=== PATIENT | female | born 1980 | race Caucasian/White ===

== ENCOUNTER 2019-09-20 09:44 | Emergency (ER) | payer MEDICAID, SELFPAY ==
[2019-09-20 09:45] VITALS: BP 144/74; PULSE 88; RESP 18; TEMP 36.6; O2SAT 99; BMI 24.7
--- NOTE | 2019-09-20 10:51 | ED.VIS.INJ ---
History of Present Illness Chief Complaint: Laceration Informant: Patient Onset: Today Quality of Pain: Dull Narrative: Patient is a 39-year-old female with no significant past medical history presenting with laceration below her right eye. Patient states she is reaching for mild and it fell over knocking off a metal side. Vital signs and struck her in the face. Patient stated. She came in because it on her face and she is worried she might need stitches. She does not know her last tetanus was but thinks it was a long time ago. He states her pain is mild. She denies any other complaints at this time. Tetanus Immunization: >10 years Past Medical History - Allergies and Home Meds Allergies/Adverse Reactions: Allergies Sulfa (Sulfonamide Antibiotics) Allergy (Verified 09/20/19 09:48) Rash sulfamethoxazole [From Bactrim] Allergy (Verified 09/20/19 09:48) Rash trimethoprim [From Bactrim] Allergy (Verified 09/20/19 09:48) Rash Primary Care Physician: Kulwant Betts MD [Primary Care Provider] - Past Medical History: None Surgical History: noncontributory Smoking Status: Current every day smoker Review of Systems General: Denies: Chills, Fever, Sweats Eyes: Denies: Visual changes - bilaterally, Diplopia ENT: Denies: Rhinorrhea, Sore throat Cardiovascular: Denies: Chest pain, Palpitations Respiratory: Denies: Dyspnea, Cough, Dyspnea on exertion Gastrointestinal: Denies: Nausea, Vomiting Genitourinary: Denies: Dysuria, Hematuria, Frequency Musculoskeletal: Denies: Back pain, Extremity Pain Skin: Reports: Abrasions - Right cheek. Denies: Rash, Wounds Neurological: Denies: Headache, Weakness, Numbness Physical Exam Vital Signs/Narrative: Vital Signs Temp Pulse Resp BP Pulse Ox 09/20/19 09:45 97.9 F 88 18 144/74 H 99 Inital Vital Signs reviewed: Yes General: Well nourished, Well developed Head: Normocephalic Eyes: Perrl, EOMI ENT: No trauma. Negative for: Nasal trauma, Nasal septal hematoma Neck: Nontender, Full ROM Cardiovascular: Regular rate, Regular rhythm Respiratory: No distress, Chest nontender Back: Nontender Skin: Normal color, No rash, - - Patient has superficial, fine linear, superficial abrasion in the central area there is a 3 mm flap. No active bleeding. it is over right cheek, underneith the right eye. No involvement of the eye itself or immediate surrounding tissue. Neurological: Alert, Oriented x3, Cranial nerves II-XII grossly intact, Normal Strength Psychological: Normal affect Diagnostic/Tx/Re-eval - Medical Decision Making Patient sustained a laceration. Majority of it is superficial. There is a small deeper area however it is a flap that is already showing signs of devitalization. Is not amenable to suturing. Localized wound care is performed. Tetanus is updated. Patient is counseled on wound care. He is counseled on scar prevention. She is instructed to follow-up with her primary care doctor. Patient is counseled on signs and symptoms requiring return to the emergency room. Patient verbalizes agreement and understand this plan. Patient discharged home in stable and improved condition. ED Disposition - Plan for ED Patient: Disposition: Home or Assisted Living Instructions: LACERATION, Small/superficial, Not sutured Referrals: Kulwant Betts MD [Primary Care Provider] - Additional Instructions: Keep the wound clean and moist with bacitracin ointment or Vaseline. Keep it covered and out of the sun. Your tetanus is updated today. Return to emergency room with any worsening symptoms or signs of infection. Otherwise follow-up with your primary care doctor.
[2019-09-20] MEDS: Diphth,Pertuss(Acell),Tet Vac 0.5 ML Vial IM (11:26)
== END 2019-09-20 11:37 | disposition home or self-care (01) ==
PROVIDERS: Emergency Provider Emergency Medicine; Family Provider Family Medicine; PCP Family Medicine
DX: S01.411A Laceration without foreign body of right cheek and temporomandibular area, initial encounter (principal); X58.XXXA Exposure to other specified factors, initial encounter; Y93.89 Activity, other specified; F17.200 Nicotine dependence, unspecified, uncomplicated
CPT/HCPCS: 90715; 99282

== ENCOUNTER 2019-11-11 15:39 | Inpatient (IN) | payer MEDICAID, SELFPAY ==
[2019-11-11 15:40] VITALS: BP 114/76; PULSE 108; RESP 16; TEMP 36.4; O2SAT 100; BMI 26.6
[2019-11-11 16:03] LABS: Absolute Lymphocyte Count 1.74 X10^3/uL (0.83-4.51); Absolute Neutrophil Count 17.6 X10^3/uL (2.0-7.7); Basophil# 0.07 X10^3/uL; Basophil% 0.3 % (0-1); Eosinophil# 0.13 X10^3/uL; Eosinophils% 0.6 % (0-5); Hematocrit 46.9 % (37-47); Hemoglobin 15.4 g/dL (12.0-15.0); Lymphocyte # 1.74 X10^3/ul (4.0); Lymphocyte % 8.3 % (19-41); Mean Corp Hgb Conc 32.8 g/dL (32-36); Mean Corpuscular Hgb 28.7 pg (27.0-32.0); Mean Corpuscular Volume 87.5 fL (81-99); Mean Platelet Vol. 9.4 fl (6.2-12.0); Monocyte# 1.23 X10^3/uL; Monocyte% 5.9 % (0-10); NRBC Flagged by Analyzer 0 % (0-5); Neutrophil # 17.58 X10^3/uL (2.7-7.7); Neutrophil % 84.4 % (47-70); Platelet Count 299 K/mm3 (150-450); RBC Distribution Width CV 13.2 % (11.6-14.6); RBC Distribution Width SD 42.2 fl (35.1-43.9); Red Blood Count 5.36 M/mm3 (4.2-5.4); White Blood Count 20.9 K/mm3 (4.4-11.0)
--- NOTE | 2019-11-11 16:09 | CT_ITS ---
STUDY: CT ABDOMEN AND PELVIS WITH CONTRAST REASON FOR EXAM: Female, 39 years old. Epigastric pain x 5 days, vomiting, elevated WBC RADIATION DOSAGE (If Supplied By Facility): CTDIvol = ( 11.30 ) mGy, DLP = ( 576.20 ) mGycm TECHNIQUE: Transaxial images were obtained from the dome of the diaphragm to the symphysis pubis without oral contrast. Oral and amp; IV Gastrografin and amp; 100mL Isovue-300 was administered. Sagittal and coronal images were reconstructed. Individualized dose optimization techniques were used for this CT. COMPARISON: None. FINDINGS: The visualized lung bases are unremarkable. The visualized portions of the heart are within normal limits. Normal liver. There is non-visualization of the gallbladder, which may be secondary to either contraction or a prior cholecystectomy. The common bile duct is moderately dilated up to 9 mm. Intrahepatic biliary ducts are mildly prominent. Normal spleen. Normal pancreas. Normal bilateral adrenal glands. Normal right kidney. Normal left kidney. Distended fluid-filled stomach. Mildly distended small intestine. Normal colon. There is non-visualization of the appendix. Normal abdominal aorta. Normal inferior vena cava. Normal retroperitoneum. Normal urinary bladder. Normal visualized uterus. Normal abdominal wall. Normal osseous structures. CT/Abdomen/Pelvis WITH Contrast IMPRESSION: Distended fluid-filled stomach and moderately distended loops of fluid-filled small bowel may represent ileus versus early obstruction as clinically indicate. No other acute process is identified. Electronically Signed: Celestino Buitrago, at 18:57 EST Tel , Service support ,
--- NOTE | 2019-11-11 16:09 | ED.VIS.GEN ---
History of Present Illness Chief Complaint: Abd Pain Narrative: Patient presents the emergency department with upper abdominal pain. Symptoms began Saturday night into Saturday morning. She reports that it starts just above her umbilicus and goes up towards her epigastrium. Described as burning and cramping. No radiation of the pain. She notes associated nausea. She did vomit until today. She states that on Saturday and Saturday she did not have any symptoms but then the symptoms returned. No urinary or bowel symptoms. She is a smoker. She takes no medications. She does not drink alcohol. She does states she drinks a lot of coffee. She has had prior cholecystectomy. Decreased appetite. Past Medical History - Allergies and Home Meds Allergies/Adverse Reactions: Allergies Sulfa (Sulfonamide Antibiotics) Allergy (Verified 11/11/19 15:42) Rash sulfamethoxazole [From Bactrim] Allergy (Verified 11/11/19 15:42) Rash trimethoprim [From Bactrim] Allergy (Verified 11/11/19 15:42) Rash Surgical History: noncontributory Smoking Status: Current every day smoker - Family History Maternal Family History: Reports: No pertinent history Paternal Family History: Reports: Diabetes, Hypertension Review of Systems General: Denies: Chills, Fever, Sweats Eyes: Denies: Visual changes - bilaterally, Diplopia ENT: Denies: Rhinorrhea, Sore throat Cardiovascular: Denies: Chest pain, Palpitations Respiratory: Denies: Dyspnea, Cough, Dyspnea on exertion Gastrointestinal: Reports: Abdominal pain, Nausea, Vomiting. Denies: Diarrhea, Constipation, Melena, Hematochezia Genitourinary: Denies: Dysuria, Hematuria, Frequency Musculoskeletal: Denies: Back pain, Extremity Pain Skin: Denies: Rash, Wounds Neurological: Denies: Headache, Weakness, Numbness Physical Exam Vital Signs/Narrative: Vital Signs Temp Pulse Resp BP Pulse Ox 11/11/19 15:40 97.6 F L 108 H 16 114/76 100 Inital Vital Signs reviewed: Yes General: Well nourished, Well developed, No Acute Distress Head: Normocephalic, Atraumatic Eyes: Perrl, EOMI ENT: Moist mucous membranes, No rhinorrhea Neck: Supple, Nontender Cardiovascular: Regular rate, Regular rhythm, No murmurs Respiratory: No distress, CTA bilaterally, Chest nontender, Retractions Abdomen: Soft, Nondistended, Normal bowel sounds, Tender - Mild tenderness to palpation periumbilical and epigastric region., Hypoactive bowel sounds Back: Nontender, Normal Inspection Extremities: Nontender, No edema Skin: Normal color, No rash Neurological: Alert, Oriented x3, Cranial nerves II-XII grossly intact, Normal Strength, Normal Sensation Psychological: Normal affect, Normal Mood Diagnostic/Tx/Re-eval - Medical Decision Making White count is elevated at 20.9. CMP and lipase were normal. Lactic acid was normal. Urinalysis was normal. Patient had a CT of the abdomen pelvis with oral and IV contrast performed. This demonstrated a fluid-filled and distended stomach and moderately distended small bowel. The abdomen has remained soft but tender. NG tube was placed. I spoke with general surgery on-call Dr. Pinedo as well as our hospitalist Dr. Jacome. Plan is admission. ED Disposition - Plan for ED Patient: Disposition: Acute Care Hospital [facility] Diagnosis: Small bowel ileus
[2019-11-11 16:16] LABS: Anion Gap 4 (5-15); BUN 15 mg/dL (7-18); BUN/Creat Ratio 16.1 RATIO (10-20); Calcium,Total 9.3 mg/dL (8.5-10.1); Chloride 104 mmol/L (98-107); Creatinine, Serum 0.93 mg/dL (0.55-1.02); EST Glomerular Filtration Rate 70 mL/min (>60); Est Glom Filt Rate - Afr Amer 85 mL/min (>60); Estimated Creatinine Clearance 65.85 ml/min; Glucose 94 mg/dL (74-106); Internal QC Validated? YES +Cl - CLEAR BKGD; Potassium 3.4 mmol/L (3.5-5.1); Pregnancy, Serum, hCG Quali. NEGATIVE Negative; Sodium Level 137 mmol/L (136-145)
[2019-11-11] MEDS: 0.9% Normal Saline 1,000 ML 999 ML IV (16:25)
[2019-11-11 16:47] LABS: AST(SGOT) 31 U/L (15-37); Alanine Aminotransfer ALT/SGPT 50 U/L (13-56); Albumin, Serum 4.4 g/dL (3.2-5.0); Alkaline Phosphatase 57 U/L (45-117); Bilirubin, Direct 0.11 mg/dL (0.00-0.30); Protein, Total 8.4 g/dL (6.4-8.2)
[2019-11-11 16:50] LABS: Lipase 77 U/L (73-393)
[2019-11-11 17:15] LABS: Bacteria 0 SEEN /hpf (None Seen); Mucous, Urine 0 SEEN /hpf (<or=2+); Red Blood Cells-Urine 0 SEEN /hpf (0-5); White Blood Cells 0 SEEN /hpf (0-5)
[2019-11-11 17:21] LABS: Color, Urine Yellow (Yellow); Glucose, Dipstick Normal (Normal); Ketone-Dipstick Negative (Negative); Leukocyte Esterase-Dipstick Negative /ul (Negative); Nitrite-Dipstick Negative (Negative); Occult Blood-Urine Negative /ul (Negative); Protein-Dipstick Negative (Negative); Urine Bilirubin Dipstick Negative (Negative); Urine Clarity Clear (Clear); Urine Urobilinogen Normal (Normal)
[2019-11-11 17:34] LABS: Squamous Epithelial Cells - UA 0-5 SEEN /hpf (5-10)
[2019-11-11 18:18] VITALS: BP 113/69; PULSE 87; RESP 17; TEMP 36.7; O2SAT 99
--- NOTE | 2019-11-11 19:50 | RAD_ITS ---
STUDY: X-RAY - ABDOMEN/PELVIS REASON FOR EXAM: Female, 39 years old. NG PLACEMENT. PT ARRIVES TO ED WITH 5 DAYS OF EPIGASTRIC ABD PAIN. TECHNIQUE: Single view of the left upper quadrant COMPARISON: None. FINDINGS: Normal visualized lung bases. Enteric tube enters the stomach with its tip to the right of midline likely at the distal stomach. Retained contrast is noted within the renal collecting systems. There is an unremarkable bowel gas pattern. There is no demonstrated free abdominal air. Normal soft tissue structures. Normal visualized osseous structures. RAD/Abdomen Single View (Portable) IMPRESSION: Enteric tube tip likely at the distal stomach. Electronically Signed: Celestino Buitrago, at 20:16 EST Tel , Service support ,
--- NOTE | 2019-11-11 20:51 | HP.PCM_ITS ---
Problem List (1) Small bowel obstruction Status: Suspected (2) Small bowel ileus Status: Acute History of Present Illness Date of Admission: 11/11/19 Chief Complaint: Abdominal pain. The patient is a 39 year old F patient with no significant past medical history presented to the emergency room because of abdominal pain. Her symptoms started today morning with abdominal pain, epigastric and midabdominal in location, comes in waves, burning and cramping pain, 7 out of 10 in severity, not radiating, associated with nausea and vomiting and without aggravating or relieving factors. She mentioned the pain is intermittent in nature. This past Saturday, she had similar episode of pain which lasted for minutes to 1 hour and then resolved. On Saturday, Saturday and Saturday, she felt fine and she had no pain. She denied constipation or diarrhea. She denied fever or chills. She denied urinary symptoms. She will history of cholecystectomy 5 years ago. In the emergency department, her vital signs were stable. Her routine blood work was remarkable for leukocytosis and potassium 3.4, otherwise normal. LFT and lipase were unremarkable. Troponin was negative. Lactic acid was normal. Serum test was negative. Urinalysis showed no evidence of infection. CT scan abdomen and pelvis with contrast revealed distended fluid-filled stomach and moderately distended loops of fluid-filled small bowel which could be due to ileus versus early obstruction. NG tube inserted and she was started on NG tube suction. She is being admitted for small bowel ileus versus early small bowel obstruction. 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 Denies: Chills, Fever, Weakness Eyes: Denies: Blurred vision, Double vision, Drainage, Redness HEENT: Denies: Difficulty Hearing, Ear Pain, Eye Pain, Nasal Congestion, Sore Throat Cardiovascular: Denies: Chest Pain, Chest Pressure, Chest Tightness, Heaviness, Light Headedness, Orthopnea, Paroxysmal Noc. Dyspnea, Syncope Respiratory: Denies: Cough, Pleuritic Pain, Shortness of Breath, Sputum production, Wheezing Gastrointestinal: Reports: Abdominal Pain, Nausea, Vomiting. Denies: Constipation, Diarrhea, Hematochezia, Melena Genitourinary: Denies: Dysuria, Frequency, Hematuria Musculoskeletal: Denies: Arm Pain, Back Pain, Foot Pain Skin: Denies: Dryness, Rash Neurological: Denies: Balance problems, Double vision, Change in Speech, Slurred speech, Confusion, Headaches, Numbness, Tingling Psychiatric: Denies: Anxiety, Depression Endocrine: Denies: Change in Body Habitus, Polydipsia, Polyuria VTE Information - Inpt Only VTE Present on Admission: No VTE Mechan Device Prophylaxis: None VTE Pharm Prophylaxis ordered?: No Patient Problems: Active and Suspected Problems Small bowel obstruction (Suspected) Small bowel ileus (Acute) - Physical Exam Vitals/I&O's: Vital Signs Temp Pulse Resp BP Pulse Ox 98.1 F 87 17 113/69 99 11/11/19 18:18 11/11/19 18:18 11/11/19 18:18 11/11/19 18:18 11/11/19 18:18 Oxygen Delivery Method Room Air Weight: 150 lb 9.211 oz Body Mass Index (BMI) 26.6 Intake and Output for Last 24 Hours 11/09/19 11/10/19 11/11/19 23:59 23:59 23:59 Intake Total 1000 / 1000 Output Total 650 / 650 Balance 350 / 350 General: Alert, Oriented x3, Cooperative, - - She is in mild distress because of the NG tube and abdominal pain. HEENT: Atraumatic, PERRLA, EOMI, Normocephalic Oral: Moist Mucosa, No Gingival or Mucosal Lesions/ Ulcerations Neck: Supple, No JVD, Negative Carotid Bruits, Trachea Midline, Thyroid Normal Size and Texture Lungs: Clear to auscultation, Normal air movement, No rhonchi, No wheeze, No rales Cardiovascular: Regular rate, Regular Rhythm, Normal S1, Normal S2, No murmurs, PMI Normal Abdomen: Soft, Non Tender, Non-Distended, No Hepato-splenomegaly, Hypoactive Bowel Sounds, - - No guarding or rigidity. Extremities: No clubbing, No cyanosis, No edema Skin: No rashes, No breakdown Lymphatic: No Cervical, Supraclavicular, or Inguinal Adenopathy Neurological: Cranial nerves II-XII grossly intact, Motor Exam 5/5 strength throughout Psych/Mental Status: Normal Affect, Appropriate, Alert and oriented to time, place, person, mood and affect Laboratory Results 11/11/19 15:55: WBC 20.9 H, RBC 5.36, Hgb 15.4 H, Hct 46.9, MCV 87.5, MCH 28.7, MCHC 32.8, RDW Std Deviation 42.2, RDW Coeff of Gregor 13.2, Plt Count 299, MPV 9.4, Immature Gran % (Auto) 0.500, Neut % (Auto) 84.4 H, Lymph % (Auto) 8.3 L, [place] % (Auto) 5.9, Eos % (Auto) 0.6, Baso % (Auto) 0.3, Absolute Neuts (auto) 17.6 H, Absolute Lymphs (auto) 1.74, Nucleated RBC % 0 11/11/19 15:55: Sodium 137, Potassium 3.4 L, Chloride 104, Carbon Dioxide 29.0, Anion Gap 4 L, BUN 15, Creatinine 0.93, Estim Creat Clear Calc 65.85, Est GFR (MDRD) Af Amer 85, Est GFR (MDRD) Non-Af 70, BUN/Creatinine Ratio 16.1, Glucose 94, Calcium 9.3 11/11/19 15:55: Serum , Qual NEGATIVE 11/11/19 15:55: Total Bilirubin 0.40, Direct Bilirubin 0.11, AST 31, ALT 50, Alkaline Phosphatase 57, Total Protein 8.4 H, Albumin 4.4, Globulin 4.0 11/11/19 15:55: Troponin I < 0.015, Lipase 77 11/11/19 16:23: Lactic Acid 1.0 11/11/19 17:05: Urine Color Yellow, Urine Clarity Clear, Urine pH 7.0, Ur Specific [place] 1.010, Urine Protein Negative, Urine Glucose (UA) Normal, Urine Ketones Negative, Urine Occult Blood Negative, Urine Nitrite Negative, Urine Bilirubin Negative, Urine Urobilinogen Normal, Ur Leukocyte Esterase Negative, Urine RBC 0 SEEN, Urine WBC 0 SEEN, Ur Squamous Epith Cells 0-5 SEEN, Urine Bacteria 0 SEEN, Urine Mucus 0 SEEN Clinical Impression(s) from Imaging Studies Abdomen/Pelvis CT 11/11/19 16:09 IMPRESSION: Distended fluid-filled stomach and moderately distended loops of fluid-filled small bowel may represent ileus versus early obstruction as clinically indicate. No other acute process is identified. Electronically Signed: Celestino Buitrago, at 18:57 EST Tel , Service support , KUB X-Ray 11/11/19 19:50 IMPRESSION: Enteric tube tip likely at the distal stomach. Electronically Signed: Celestino Buitrago, at 20:16 EST Tel , Service support , Assessment/Plan All Active Problems Small bowel ileus (Acute) This is a 39 years old female patient presented to the emergency room because of abdominal pain, found to have findings consistent with small bowel ileus versus early obstruction and she is being admitted for treatment. #1 abdominal pain/small bowel ileus versus early small bowel obstruction: CT scan abdomen and pelvis reviewed as above. NG tube inserted. She history of cholecystectomy 5 years ago and adhesions could be the reason for her symptoms. Serum test is negative. Plan: Admit to [facility] floor, nothing by mouth, IV fluids, IV antiemetics, IV morphine PRN for pain, IV Pepcid twice daily, general surgery consult, repeat KUB tomorrow morning, repeat CBC, CMP and lipase tomorrow morning. #2 mild hypokalemia: Likely because of nausea and vomiting. Plan to replace potassium with IV potassium chloride, repeat CMP tomorrow morning. #3 leukocytosis: Reactive secondary to acute pain and stress. No symptoms suggestive of infection. UA was clean. Plan to monitor, repeat CBC tomorrow morning. #4 tobacco abuse: NicoDerm patch. #5 DVT prophylaxis: Low risk patient, no prophylaxis indicated. This note was generated with [employer] software. It may contain incorrect words, spelling, and punctuation that were not noted in checking the note before signing. Code Visit Inpatient E&M: 96628 Init Hosp L2
[2019-11-11 21:12] VITALS: BP 113/71; PULSE 91; RESP 14; O2SAT 98
[2019-11-11 22:03] VITALS: BMI 25.7; BMI 25.8
[2019-11-11 22:24] VITALS: BP 112/76; PULSE 85; RESP 16; TEMP 37.1; O2SAT 99
[2019-11-11] MEDS: Famotidine 200 MG/20 ML MDV 20 MG in 0.9% Normal Saline (Pres. free 8 ML 300 MG IV (23:41)
[2019-11-11] MEDS: 0.9% Saline Lock 10 ML Syringe IV (23:42)
[2019-11-11] MEDS: Potassium Chloride 10mEq/100mL 10 MEQ/100 ML IV.SOLN. 100 MEQ IV BOLUS (23:42)
[2019-11-11] MEDS: Lactated Ringers 1,000 ML 100 ML IV (23:42)
[2019-11-11] MEDS: Morphine 2 MG/ML Syringe 1 MG IV (23:57)
[2019-11-12] VITALS (12 sets, daily range): BP systolic 105–127; BP diastolic 61–82; PULSE 80–124; RESP 16–18; TEMP 36.3–37.6; O2SAT 95–100; BMI 25.7
[2019-11-12] MEDS: Potassium Chloride 10mEq/100mL 10 MEQ/100 ML IV.SOLN. 75 MEQ IV BOLUS (01:47)
[2019-11-12] MEDS: Morphine 2 MG/ML Syringe 1 MG IV (04:07)
[2019-11-12] MEDS: 0.9% Saline Lock 10 ML Syringe IV ×2 (04:08→09:04)
--- NOTE | 2019-11-12 05:48 | CON.PCM_ITS ---
Problem List (1) Small bowel ileus Status: Acute Reason for Consult Date of Consultation: 11/12/19 History of Present Illness: The patient is a 39 year old F who I have been asked to see by Dr. Jacome for findings suspicious for small bowel ileus although small bowel obstruction not excluded. For 2 days the patient had epigastric pain burning discomfort and waves of discomfort. Nausea minimal vomiting. She had eaten at [employer]. Then she had 2 days of normalcy. Then yesterday she had recurrence of the epigastric burning pain. No fever or chills or sweats. She had some slightly looser stools yesterday. She denies cough. Denies bright red blood per rectum or melena. She has never previously had a colonoscopy. She denies previous history of peptic ulcer disease. She occasionally has some stomach upset for which she takes Tums. She did take Tums on 2 occasions for this particular problem. She states currently that the discomfort has completely resolved. She was admitted to the hospital last evening NG tube was placed approximately 650 cc was removed. She has passed flatus and has had 1 small bowel movement. Abdominal x-ray this morning suggests complete decompression of small bowel there is abundant gas seen within the colon. On presentation her white blood cell count was 20.9 with a hemoglobin 15.4 Marcelle 46.9 platelet count 299,000 84% segs. BUN 15 creatinine 0.93. Urinalysis was not remarkable. She has been completely afebrile. On her presentation her heart rate was 108 currently it is 86. Her previous surgical history includes a laparoscopic cholecystectomy by report performed by Dr. Dennis. This was at the [facility] surgery [place]. The patient states that she does not recall whether it was done for gallstones but she thinks it was. Liver function tests on presentation unremarkable. A lipase on presentation was normal. test negative. It is pertinent that the patient is a very heavy cigarette smoker at the rate of a pack and 1/2/day. Among other medications she was started on famotidine IV. 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 Denies: Abdominal Pain Musculoskeletal: Denies: Leg Pain Endocrine: Denies: Change in Body Habitus Patient Problems: Active and Suspected Problems Small bowel obstruction (Suspected) Small bowel ileus (Acute) - Physical Exam Vitals/I&O's: Vital Signs Temp Pulse Resp BP Pulse Ox 98.9 F 86 18 115/77 98 11/12/19 03:14 11/12/19 03:14 11/12/19 03:14 11/12/19 03:14 11/12/19 03:14 Oxygen Delivery Method Room Air Weight: 145 lb 9 oz Body Mass Index (BMI) 25.7 Intake and Output for Last 24 Hours 11/10/19 11/11/19 11/12/19 23:59 23:59 23:59 Intake Total 1060 / 1060 200.00 / 200.00 Output Total 650 / 650 Balance 410 / 410 200.00 / 200.00 General: Alert, Oriented x3, Cooperative, No apparent distress HEENT: Atraumatic Oral: Moist Mucosa Lungs: Clear to auscultation, Normal air movement Cardiovascular: Regular rate, Regular Rhythm Abdomen: Bowel Sounds Present, Soft, Non Tender, Non-Distended, - - Well-healed supraumbilical transverse incision Extremities: No Calf Tenderness Neurological: - - Normal cognition Psych/Mental Status: Normal Affect Laboratory Results 11/11/19 15:55: WBC 20.9 H, RBC 5.36, Hgb 15.4 H, Hct 46.9, MCV 87.5, MCH 28.7, MCHC 32.8, RDW Std Deviation 42.2, RDW Coeff of Gregor 13.2, Plt Count 299, MPV 9.4, Immature Gran % (Auto) 0.500, Neut % (Auto) 84.4 H, Lymph % (Auto) 8.3 L, [place] % (Auto) 5.9, Eos % (Auto) 0.6, Baso % (Auto) 0.3, Absolute Neuts (auto) 17.6 H, Absolute Lymphs (auto) 1.74, Nucleated RBC % 0 11/11/19 15:55: Sodium 137, Potassium 3.4 L, Chloride 104, Carbon Dioxide 29.0, Anion Gap 4 L, BUN 15, Creatinine 0.93, Estim Creat Clear Calc 65.85, Est GFR (MDRD) Af Amer 85, Est GFR (MDRD) Non-Af 70, BUN/Creatinine Ratio 16.1, Glucose 94, Calcium 9.3 11/11/19 15:55: Serum , Qual NEGATIVE 11/11/19 15:55: Total Bilirubin 0.40, Direct Bilirubin 0.11, AST 31, ALT 50, Alkaline Phosphatase 57, Total Protein 8.4 H, Albumin 4.4, Globulin 4.0 11/11/19 15:55: Troponin I < 0.015, Lipase 77 11/11/19 16:23: Lactic Acid 1.0 11/11/19 17:05: Urine Color Yellow, Urine Clarity Clear, Urine pH 7.0, Ur Speci fic [place] 1.010, Urine Protein Negative, Urine Glucose (UA) Normal, Urine Ketones Negative, Urine Occult Blood Negative, Urine Nitrite Negative, Urine Bilirubin Negative, Urine Urobilinogen Normal, Ur Leukocyte Esterase Negative, Urine RBC 0 SEEN, Urine WBC 0 SEEN, Ur Squamous Epith Cells 0-5 SEEN, Urine Bacteria 0 SEEN, Urine Mucus 0 SEEN Current Medications Acetaminophen (Tylenol) 650 mg PO Q6H PRN PRN PRN Reason: Pain Score 1-3/Temp > 100.7 F Lactated Ringer's () 1,000 mls @ 100 mls/hr IV .Q10H FREDERICK Last Admin: 11/11/19 23:42 Dose: 100 mls/hr Documented by: Famotidine 20 mg/ Sodium (Chloride) 10 mls @ 300 mls/hr IV Q12 FREDERICK Last Infusion: 11/11/19 23:43 Dose: Infused Documented by: Sodium Chloride () 250 mls @ 15 mls/hr IV .[id number] PRN PRN Reason: Saline Flush Last Infusion: 11/11/19 23:43 Dose: 0 mls/hr Documented by: Morphine Sulfate () 1 mg IV Q4H PRN PRN PRN Reason: Pain Score 4-10/10 Last Admin: 11/12/19 04:07 Dose: 1 mg Documented by: Nicotine (Nicoderm Cq ([facility])) 21 mg TRANSDERM. DAILY FREDERICK Last Admin: 11/11/19 23:43 Dose: 21 mg Documented by: Ondansetron HCl (Zofran) 4 mg IV Q8H PRN PRN PRN Reason: NAUSEA/VOMITING Promethazine HCl (Phenergan) 6.25 mg IV Q6H PRN PRN PRN Reason: NAUSEA/VOMITING Sodium Chloride () 10 - 40 ml IV UD PRN PRN Reason: SALINE FLUSH Last Admin: 11/12/19 04:08 Dose: 10 ml Documented by: Assessment/Plan All Active Problems Small bowel ileus (Acute) 39-year-old female who describes epigastric burning pain and waves of pain with nausea. On admission imaging suggested significant fluid-filled stomach. Small bowel appeared to be generally mildly dilated. She has seemingly decompressed. She is currently asymptomatic. She is a very heavy cigarette smoker. Presentation could be consistent with peptic ulcer disease explaining the burning pain in the epigastrium and gastric distention. This of course would not correlate well with the small doubt bowel distention. It appears that her NG tube decompression has worked. Patient is very uncomfortable with the NG tube and will remove it. As the patient was ill than better than ill I think it is pertinent to pursue a small bowel follow-through and will obtain that this morning. If that is unremarkable then would anticipate initiating a diet and would anticipate discharge later today. She does not appear to have an acute surgical abdomen. Laboratory is pending. If the patient does reach discharge today I would recommend discharge on an acid suppression regimen. Pending in her future progress might consider a future EGD though I would initiate medications first and assess for improvement. I would not want to add further intragastric air at this point and again that would not correlate with the small bowel finding. I appreciate the opportunity of assisting with her surgical care. At this point I am anticipating that she will progress nicely. Taz Pinedo M.D., F.A.C.S.
--- NOTE | 2019-11-12 05:55 | RAD_ITS ---
STUDY: X-RAY - ABDOMEN/PELVIS REASON FOR EXAM: Female, 39 years old. ileus TECHNIQUE: Single AP view of the abdomen / pelvis. COMPARISON: Abdominal x-ray and CT scan abdomen and pelvis 11/11/2019. FINDINGS: Nasogastric tube tip and sidehole are in the body of the stomach. There is an unremarkable bowel gas pattern. There is no demonstrated free abdominal air. There is excreted contrast material in the urinary bladder and renal collecting systems. Normal soft tissue structures. Normal visualized osseous structures. RAD/Abdomen Single View IMPRESSION: Nasogastric tube is in adequate position. Nonspecific bowel gas pattern. Electronically Signed: Karan Moore MD at 6:00 EST , Service support ,
[2019-11-12 06:24] LABS: Absolute Lymphocyte Count 2.01 X10^3/uL (0.83-4.51); Absolute Neutrophil Count 4.9 X10^3/uL (2.0-7.7); Basophil# 0.04 X10^3/uL; Basophil% 0.5 % (0-1); Eosinophil# 0.18 X10^3/uL; Eosinophils% 2.3 % (0-5); Hematocrit 38.5 % (37-47); Hemoglobin 12.6 g/dL (12.0-15.0); Lymphocyte # 2.01 X10^3/ul (4.0); Lymphocyte % 25.7 % (19-41); Mean Corp Hgb Conc 32.7 g/dL (32-36); Mean Corpuscular Hgb 28.4 pg (27.0-32.0); Mean Corpuscular Volume 86.9 fL (81-99); Mean Platelet Vol. 9.5 fl (6.2-12.0); Monocyte# 0.68 X10^3/uL; Monocyte% 8.7 % (0-10); NRBC Flagged by Analyzer 0 % (0-5); Neutrophil % 62.5 % (47-70); Platelet Count 227 K/mm3 (150-450); RBC Distribution Width CV 13.1 % (11.6-14.6); RBC Distribution Width SD 41.2 fl (35.1-43.9); Red Blood Count 4.43 M/mm3 (4.2-5.4); White Blood Count 7.8 K/mm3 (4.4-11.0)
[2019-11-12] MEDS: Lactated Ringers 1,000 ML 100 ML IV ×2 (06:33→14:25)
[2019-11-12 06:43] LABS: AST(SGOT) 212 U/L (15-37); Alanine Aminotransfer ALT/SGPT 195 U/L (13-56); Alkaline Phosphatase 58 U/L (45-117); Anion Gap 4 (5-15); BUN 13 mg/dL (7-18); BUN/Creat Ratio 19.5 RATIO (10-20); Chloride 111 mmol/L (98-107); Creatinine, Serum 0.67 mg/dL (0.55-1.02); EST Glomerular Filtration Rate 103 mL/min (>60); Est Glom Filt Rate - Afr Amer 125 mL/min (>60); Estimated Creatinine Clearance 91.41 ml/min; Glucose 86 mg/dL (74-106); Lipase 60 U/L (73-393); Potassium 3.9 mmol/L (3.5-5.1); Sodium Level 140 mmol/L (136-145)
--- NOTE | 2019-11-12 07:23 | PCM.PN.HOSP ---
Patient Problems: Active and Suspected Problems Small bowel obstruction (Suspected) Small bowel ileus (Acute) Subjective: Patient with no acute events overnight, onset flatus and bowel movements this morning. Patient with improvement of abdominal pain complaints and on examination soft with no significant pain. Initial plan for discharge to home if diet tolerated however given CMP discussed elevated liver enzymes with plan for hepatitis panel to be obtained given outbreaks recently of hepatitis A with general surgeon and given this reviewed imaging and decision for transition to ERCP to assure no retained stone status post cholecystectomy history prior. ERCP performed with no obvious large stone but noted gastritis with some blood in the stomach with recommended continuation of twice daily high-dose Protonix would had already been ordered. Patient will be transition to clear liquids and will continue to monitor. Patient denies fevers, chills, recurrent or worsened nausea, emesis, abdominal pain, chest pain or dyspnea. Objective: Physical Examination: General: awake, alert, oriented x 3 and cooperative, seated upright in the medical surgical bed, no acute distress, notes feeling improved since initial ED presentation, has been having flatus and had bowel movement this morning but notes it was liquidy given recent small bowel follow-through intake. Skin: normal color, turgor, no icterus, cyanosis. HEENT: AT/NC, EOMI, PERRLA, improved MMM. Lungs: CTA bilaterally, moderate effort, mild decrease BL bases, no rales, ronchi or wheezing. Heart: Giller rate and rhythm; no gallop, rub audible. Abdomen: soft, NTTP, ND, normal BS, no HSM. Extremities: no cyanosis, clubbing, or edema. Neurological: patient awake, alert, oriented x 3; cognitive function intact; pupils equally reactive to light and accomodation; cranial nerves II-XII grossly normal, moving all 4 extremities, no focal deficits, strength mildly global decrease given recent acute complaints but seems to have improved since admission. Psychiatric: affect appears mildly fatigued but notes she is improved since admission, no acute evidence of depressive or anxiety feelings. Vitals/I&O's: Vital Signs Temp Pulse Resp BP Pulse Ox 98.9 F 86 18 115/77 98 11/12/19 03:14 11/12/19 03:14 11/12/19 03:14 11/12/19 03:14 11/12/19 03:14 Oxygen Delivery Method Room Air Weight: 145 lb 9 oz Body Mass Index (BMI) 25.7 Intake and Output for Last 24 Hours 11/10/19 11/11/19 11/12/19 23:59 23:59 23:59 Intake Total 1060 / 1060 885.00 / 885.00 Output Total 650 / 650 100 / 100 Balance 410 / 410 785.00 / 785.00 Laboratory Results 11/11/19 15:55: WBC 20.9 H, RBC 5.36, Hgb 15.4 H, Hct 46.9, MCV 87.5, MCH 28.7, MCHC 32.8, RDW Std Deviation 42.2, RDW Coeff of Gregor 13.2, Plt Count 299, MPV 9.4, Immature Gran % (Auto) 0.500, Neut % (Auto) 84.4 H, Lymph % (Auto) 8.3 L, [place] % (Auto) 5.9, Eos % (Auto) 0.6, Baso % (Auto) 0.3, Absolute Neuts (auto) 17.6 H, Absolute Lymphs (auto) 1.74, Nucleated RBC % 0 11/11/19 15:55: Sodium 137, Potassium 3.4 L, Chloride 104, Carbon Dioxide 29.0, Anion Gap 4 L, BUN 15, Creatinine 0.93, Estim Creat Clear Calc 65.85, Est GFR (MDRD) Af Amer 85, Est GFR (MDRD) Non-Af 70, BUN/Creatinine Ratio 16.1, Glucose 94, Calcium 9.3 11/11/19 15:55: Serum , Qual NEGATIVE 11/11/19 15:55: Total Bilirubin 0.40, Direct Bilirubin 0.11, AST 31, ALT 50, Alkaline Phosphatase 57, Total Protein 8.4 H, Albumin 4.4, Globulin 4.0 11/11/19 15:55: Troponin I < 0.015, Lipase 77 11/11/19 16:23: Lactic Acid 1.0 11/11/19 17:05: Urine Color Yellow, Urine Clarity Clear, Urine pH 7.0, Ur Specific [place] 1.010, Urine Protein Negative, Urine Glucose (UA) Normal, Urine Ketones Negative, Urine Occult Blood Negative, Urine Nitrite Negative, Urine Bilirubin Negative, Urine Urobilinogen Normal, Ur Leukocyte Esterase Negative, Urine RBC 0 SEEN, Urine WBC 0 SEEN, Ur Squamous Epith Cells 0-5 SEEN, Urine Bacteria 0 SEEN, Urine Mucus 0 SEEN 11/12/19 06:00: WBC 7.8, RBC 4.43, Hgb 12.6, Hct 38.5, MCV 86.9, MCH 28.4, MCHC 32.7, RDW Std Deviation 41.2, RDW Coeff of Gregor 13.1, Plt Count 227, MPV 9.5, Immature Gran % (Auto) 0.300, Neut % (Auto) 62.5, Lymph % (Auto) 25.7, [place] % (Auto) 8.7, Eos % (Auto) 2.3, Baso % (Auto) 0.5, Absolute Neuts (auto) 4.9, Absolute Lymphs (auto) 2.01, Nucleated RBC % 0 11/12/19 06:00: Sodium 140, Potassium 3.9, Chloride 111 H, Carbon Dioxide 25.0, Anion Gap 4 L, BUN 13, Creatinine 0.67, Estim Creat Clear Calc 91.41, Est GFR (MDRD) Af Amer 125, Est GFR (MDRD) Non-Af 103, BUN/Creatinine Ratio 19.5, Glucose 86, Calcium 8.0 L, Total Bilirubin 1.10 H, AST 212 H, ALT 195 H, Alkaline Phosphatase 58, Total Protein 6.0 L, Albumin 3.0 L, Globulin 3.0, Albumin/Globulin Ratio 1.0, Lipase 60 L Current Medications Acetaminophen (Tylenol) 650 mg PO Q6H PRN PRN PRN Reason: Pain Score 1-3/Temp > 100.7 F Lactated Ringer's () 1,000 mls @ 100 mls/hr IV .Q10H FREDERICK Last Admin: 11/12/19 06:33 Dose: 100 mls/hr Documented by: Famotidine 20 mg/ Sodium (Chloride) 10 mls @ 300 mls/hr IV Q12 FREDERICK Last Infusion: 11/11/19 23:43 Dose: Infused Documented by: Sodium Chloride () 250 mls @ 15 mls/hr IV .[id number] PRN PRN Reason: Saline Flush Last Infusion: 11/11/19 23:43 Dose: 0 mls/hr Documented by: Morphine Sulfate () 1 mg IV Q4H PRN PRN PRN Reason: Pain Score 4-10/10 Last Admin: 11/12/19 04:07 Dose: 1 mg Documented by: Nicotine (Nicoderm Cq ([facility])) 21 mg TRANSDERM. DAILY FREDERICK Last Admin: 11/11/19 23:43 Dose: 21 mg Documented by: Ondansetron HCl (Zofran) 4 mg IV Q8H PRN PRN PRN Reason: NAUSEA/VOMITING Promethazine HCl (Phenergan) 6.25 mg IV Q6H PRN PRN PRN Reason: NAUSEA/VOMITING Sodium Chloride () 10 - 40 ml IV UD PRN PRN Reason: SALINE FLUSH Last Admin: 11/12/19 04:08 Dose: 10 ml Documented by: Medical Necessity - Tobacco Use Smoking Status: Heavy Smoker (>10/day) Tobacco Use: Cigarettes Assessment/Plan All Active Problems Small bowel ileus (Acute) The patient is a 39 y/o F w/ PMHx: Tobacco use, Prior history of cholecystectomy who presents to the [facility] ED on 11/11/19 with history of onset abdominal pain starting AM on day of ED presentation, noted epigastric and midabdominal in location, comes in waves, burning and cramping pain, 7 out of 10 in severity, not radiating, associated with nausea and vomiting and without aggravating or relieving factors. 1. Abdominal pain, nausea, emesis secondary to acute gastritis, Possible Hepatitis w/ elevated LFT as noted, RULED out retained CBD stone, RULED out ileus and early SBO: In the ED work-up included CT A/P w/ distended fluid-filled stomach and moderately distended loops of fluid-filled small bowel possibly ileus versus early obstruction, CBC w/ WBC 20.9 with L shift, LA normal. Admitted to MA, maintained on IVFs, initiated NGT to suction in the ED, evaluation this AM per General surgery with d/c plan, strict I&Os, IV pain/anti-emetics PRN, serial KUB to montior bowel function w/ 11/12/19 AM nonspecific bowel gas pattern, Famotidine IV, maintain NPO on bowel rest. Patient upon general surgery evaluation in a.m. with discontinuation of NG tube and patient ordered small bowel follow-through with no obvious concerning findings. Reviewed patient labs including elevated LFTs with general surgery and concerned that maybe presentation was secondary to retained common bile duct stone. Patient underwent ERCP and there is no obvious retained stone but did notice significant gastritis with blood in the stomach with recommendation for continued high-dose PPI and allowance of clears with continued monitoring and repeat CMP in a.m. 2. Leukocytosis, unclear etiology: Likely stress response and dehydration, admission WBC 20.9 with left shift on CBC however completely corrected on 11/12/2019 following overnight hydration and conservative treatments as noted above. 3. Elevated LFTs: Admission CMP with AST/ALT 31/50 with total bilirubin 0.4, direct bilirubin 0.11, repeat 11/12/2019 with total bilirubin 1.10, AST/ALT 212/195 with alk phos 58, unclear if associated with acute presentation, surgery evaluation as noted with concern for initially retained common bile duct stone now status post ERCP with no obvious retained stone but evidence of acute gastritis upon evaluation. Recommended continued high-dose twice daily PPI and allowance of clears. We will plan to keep patient, continue hydration and repeat CMP in a.m. 4. Hypokalemia: Admission K+ 3.4, supplementation given, repeat level 11/12/2019 3.9, corrected. 5. DVT prophylaxis: Low risk, ambulation encouraged. Code Visit Inpatient E&M: 14074 Subs Hosp L3
--- NOTE | 2019-11-12 09:15 | RAD_ITS ---
STUDY: GASTROGRAFIN SMALL BOWEL FOLLOW-THROUGH EXAMINATION. REASON FOR EXAM: Female, 39 years old. Abd pain,sbo? 90 ml gastrografin/90 ml water FLUOROSCOPY TIME (if supplied): ( 60 seconds ) minutes/seconds. 19 spot views were obtained. TECHNIQUE: The patient ingested Gastrografin. Multiple images of the esophagus, stomach and duodenum were obtained. Following this, a small bowel follow-through examination was performed. COMPARISON: None. FINDINGS: On the senior ui software engineer film, the gas pattern is unremarkable. There is no evidence of a bowel obstruction. Contrast is seen within the terminal ileum at 30 minutes following ingestion. RAD/Upper GI/w Small Bowel IMPRESSION: No evidence of obstruction. Electronically Signed: Efrain Davis, at 10:30 EST , Service support ,
--- NOTE | 2019-11-12 10:42 | PCM.PN.BLA ---
Progress Note Small bowel follow-through: No evidence for obstruction. Transit to terminal ileum 30 minutes. Will initiate regular diet. I would anticipate discharge today. Taz Pinedo M.D., F.A.C.S. STROKE Vital Signs/Narrative: Vital Signs Temp Pulse Resp BP Pulse Ox 11/12/19 09:06 98.6 F 80 16 127/80 H 100
[2019-11-12] MEDS: Famotidine 200 MG/20 ML MDV 20 MG in 0.9% Normal Saline (Pres. free 8 ML 300 MG IV (10:55)
--- NOTE | 2019-11-12 11:21 | CASEMGMT ---
RN CM Assessment Note Presentation: SB ileus Intro role of CM and purpose of RN CM assessment to patient in room. Pt is awake, alert and able to participate. Demographics, PCP and Pharmacy verified. Pt states she will possibly go home later today. No care needs identified. PCP: Dr. Betts Specialists: Dr. Taz Pinedo Preferred Pharmacy: [facility] Insurance: [employer] Prescription Benefit: yes LNOK: , David Living Arrangements: Lives independently at home. No care needs identified. Transportation: drives DME: none HHC: none Patient DC goals: home DC PLAN: Home, no needs identified. Rao ORTEGA RN ACM
--- NOTE | 2019-11-12 11:37 | DCINST_ITS ---
- Discharge Diagnoses Current Active Problems: Current Active and Chronic Problems 1. Abdominal pain, nausea, emesis w/ ? Ileus versus Early SBO, RULED OUT, more Suspicious for Underlying peptic ulcer disease 2. Leukocytosis, unclear etiology, resolved, likely stress response and dehydration 3. Elevated LFTs, unclear etiology, pending hepatitis panel, liver US performed (plan repeat CMP outpatient and await hepatitis results) 4. Hypokalemia You will use the following diet at home:: Regular Your food should be the consistency of: Regular Your liquids should be the consistency of: Regular/Thin Discharge Activity: - - Avoid aggressive activity until clinically improved, tolerating diet. Call your doctor if you observe: Fever of 101 or Higher, Inability to urinate, Inability to have a bowel movement, Shortness of breath, Dizziness, Fainting spells, Chest pain, Uncontrolled pain Instructions: Peptic Ulcer, Understanding H. pylori and Ulcers Additional Instructions: During the admission you had elevations noted of your liver enzymes, liver ultrasound was obtained as well as hepatitis panel with results pending upon discharge and likely to return in the next 2 to 3 days. Please review these results with your primary care physician. There have been recent outbreaks of hepatitis A in the community related with certain food intake and this can cause transient increase of the liver enzymes with eventual improvement therefore trending outpatient will be important. Again the hepatitis panel may be unremarkable however we are being cautious. Please continue newly initiated Protonix regimen twice daily for possible underlying peptic ulcer disease for which Dr. Pinedo is suspicious given your symptoms. You will have future upcoming evaluation for him outpatient with planned endoscopy at that time. Allergies/Adverse Reactions: Allergies Sulfa (Sulfonamide Antibiotics) Allergy (Verified 11/11/19 15:42) Rash sulfamethoxazole [From Bactrim] Allergy (Verified 11/11/19 15:42) Rash trimethoprim [From Bactrim] Allergy (Verified 11/11/19 15:42) Rash Medications to take at Discharge Nicotine [Nicoderm Cq] 21 mg TRANSDERM. DAILY #14 patch 11/12/19 Pantoprazole Sodium [Protonix] 40 mg PO BID #60 tab 11/12/19 The following prescriptions were given: Nicotine [Nicoderm Cq] 21 mg TRANSDERM. DAILY #14 patch Transmission Status: Pending to [id number] Pantoprazole Sodium [Protonix] 40 mg PO BID #60 tab Transmission Status: Pending to [id number] Primary Care Physician: Kulwant Betts MD [Primary Care Provider] - Please follow up with your Primary Care Physician in: Follow-up within 3-5 days to review admission. Test Results: Test results from this visit will be discussed in further detail at your follow- up appointment, if applicable. Please Follow Up With: Taz Pinedo MD When: Follow-up 2-[address] Pinedo discretion. Proposed Discharge Date: 11/12/19
--- NOTE | 2019-11-12 13:00 | PCM.PN.SRG ---
Patient Problems: Active and Suspected Problems Small bowel obstruction (Suspected) Small bowel ileus (Acute) Subjective: Patient still having some right upper quadrant pain rating to the back. She reports that the pain in her upper abdomen that was there yesterday is gone. - Physical Exam Vitals/I&O's: Vital Signs Temp Pulse Resp BP Pulse Ox 98.6 F 80 16 127/80 H 100 11/12/19 09:06 11/12/19 09:06 11/12/19 09:06 11/12/19 09:06 11/12/19 09:06 Oxygen Delivery Method Room Air Weight: 145 lb 9 oz Body Mass Index (BMI) 25.7 Intake and Output for Last 24 Hours 11/10/19 11/11/19 11/12/19 23:59 23:59 23:59 Intake Total 1060 / 1060 1305.00 / 1305.00 Output Total 650 / 650 100 / 100 Balance 410 / 410 1205.00 / 1205.00 General: Alert, Oriented x3 Neck: No JVD Lungs: Normal air movement Cardiovascular: Regular rate, Regular Rhythm Abdomen: Soft, Non-Distended, Tender - Mildly tender in the upper right quadrant Laboratory Results 11/11/19 15:55: WBC 20.9 H, RBC 5.36, Hgb 15.4 H, Hct 46.9, MCV 87.5, MCH 28.7, MCHC 32.8, RDW Std Deviation 42.2, RDW Coeff of Gregor 13.2, Plt Count 299, MPV 9.4, Immature Gran % (Auto) 0.500, Neut % (Auto) 84.4 H, Lymph % (Auto) 8.3 L, Chase % (Auto) 5.9, Eos % (Auto) 0.6, Baso % (Auto) 0.3, Absolute Neuts (auto) 17.6 H, Absolute Lymphs (auto) 1.74, Nucleated RBC % 0 11/11/19 15:55: Sodium 137, Potassium 3.4 L, Chloride 104, Carbon Dioxide 29.0, Anion Gap 4 L, BUN 15, Creatinine 0.93, Estim Creat Clear Calc 65.85, Est GFR (MDRD) Af Amer 85, Est GFR (MDRD) Non-Af 70, BUN/Creatinine Ratio 16.1, Glucose 94, Calcium 9.3 11/11/19 15:55: Serum , Qual NEGATIVE 11/11/19 15:55: Total Bilirubin 0.40, Direct Bilirubin 0.11, AST 31, ALT 50, Alkaline Phosphatase 57, Total Protein 8.4 H, Albumin 4.4, Globulin 4.0 11/11/19 15:55: Troponin I < 0.015, Lipase 77 11/11/19 15:55: Hepatitis A IgM Ab Pending, Hepatitis A Ab Total Pending, Hep Bs Antigen Pending, Hep B Core Total Ab Pending, Hep B Core IgM Ab Pending 11/11/19 16:23: Lactic Acid 1.0 11/11/19 17:05: Urine Color Yellow, Urine Clarity Clear, Urine pH 7.0, Ur Specific [place] 1.010, Urine Protein Negative, Urine Glucose (UA) Normal, Urine Ketones Negative, Urine Occult Blood Negative, Urine Nitrite Negative, Urine Bilirubin Negative, Urine Urobilinogen Normal, Ur Leukocyte Esterase Negative, Urine RBC 0 SEEN, Urine WBC 0 SEEN, Ur Squamous Epith Cells 0-5 SEEN, Urine Bacteria 0 SEEN, Urine Mucus 0 SEEN 11/11/19 17:05: Urine Opiates Screen Pending, Urine Methadone Screen Pending, Ur Barbiturates Screen Pending, Ur Phencyclidine Scrn Pending, Ur Amphetamines Screen Pending, U Methamphetamin-MDMA Pending, U Benzodiazepines Scrn Pending, Urine Cocaine Screen Pending, U Cannabinoids Screen Pending, Ur Drug Screen Comment 11/12/19 06:00: WBC 7.8, RBC 4.43, Hgb 12.6, Hct 38.5, MCV 86.9, MCH 28.4, MCHC 32.7, RDW Std Deviation 41.2, RDW Coeff of Gregor 13.1, Plt Count 227, MPV 9.5, Immature Gran % (Auto) 0.300, Neut % (Auto) 62.5, Lymph % (Auto) 25.7, Chase % (Auto) 8.7, Eos % (Auto) 2.3, Baso % (Auto) 0.5, Absolute Neuts (auto) 4.9, Absolute Lymphs (auto) 2.01, Nucleated RBC % 0 11/12/19 06:00: Sodium 140, Potassium 3.9, Chloride 111 H, Carbon Dioxide 25.0, Anion Gap 4 L, BUN 13, Creatinine 0.67, Estim Creat Clear Calc 91.41, Est GFR (MDRD) Af Amer 125, Est GFR (MDRD) Non-Af 103, BUN/Creatinine Ratio 19.5, Glucose 86, Calcium 8.0 L, Total Bilirubin 1.10 H, AST 212 H, ALT 195 H, Alkaline Phosphatase 58, Total Protein 6.0 L, Albumin 3.0 L, Globulin 3.0, Albumin/Globulin Ratio 1.0, Lipase 60 L Current Medications Acetaminophen (Tylenol) 650 mg PO Q6H PRN PRN PRN Reason: Pain Score 1-3/Temp > 100.7 F Al Hydroxide/Mg Hydroxide (Mylanta Ii) 30 ml PO Q4H PRN PRN PRN Reason: DYSPEPSIA Calcium Carbonate (Tums) 500 mg PO Q4H PRN PRN PRN Reason: DYSPEPSIA Lactated Ringer's () 1,000 mls @ 100 mls/hr IV .Q10H [facility] Last Infusion: 11/12/19 12:31 Dose: 0 mls/hr Documented by: Famotidine 20 mg/ Sodium (Chloride) 10 mls @ 300 mls/hr IV Q12 [facility] Last Infusion: 11/12/19 10:57 Dose: Infused Documented by: Sodium Chloride () 250 mls @ 15 mls/hr IV .[id number] PRN PRN Reason: Saline Flush Last Infusion: 11/12/19 10:57 Dose: Infused Documented by: Morphine Sulfate () 1 mg IV Q4H PRN PRN PRN Reason: Pain Score 4-10/10 Last Admin: 11/12/19 04:07 Dose: 1 mg Documented by: Nicotine (Nicoderm Cq (Pbkc)) 21 mg TRANSDERM. DAILY [facility] Last Admin: 11/12/19 09:04 Dose: 21 mg Documented by: Ondansetron HCl (Zofran) 4 mg IV Q8H PRN PRN PRN Reason: NAUSEA/VOMITING Promethazine HCl (Phenergan) 6.25 mg IV Q6H PRN PRN PRN Reason: NAUSEA/VOMITING Sodium Chloride () 10 - 40 ml IV UD PRN PRN Reason: SALINE FLUSH Last Admin: 11/12/19 09:04 Dose: 10 ml Documented by: Medical Necessity - Tobacco Use Smoking Status: Heavy Smoker (>10/day) Tobacco Use: Cigarettes Assessment/Plan All Active Problems Small bowel ileus (Acute) 39-year-old female with elevated liver enzymes 1. The patient has a history of laparoscopic cholecystitis. She had a CT scan yesterday which showed dilation of the common bile duct to 9 mm as well as prominence of the intrahepatic bile duct. Yesterday her white count was 20 but her LFTs are normal. Today her ileus seems to have resolved and she is not having any nausea or vomiting but she is still having some right upper quadrant pain and her LFTs have increased. I discussed MRCP versus ERCP with her. Patient currently elects for ERCP. I discussed ERCP in detail including the risks of bleeding, infection, perforation of the bile duct or bowel, pancreatitis. The patient understands and is willing to proceed. Darinel Garcia MD Pager: [facility] [address] [place] [address], [address] [place] [address] Office:
[2019-11-12 13:01] LABS: Amphetamine Urine VISTA NEGATIVE (<1000 ng/mL); Barbiturate Urine VISTA NEGATIVE (< 200 ng/mL); Benzodiazepine Urine VISTA NEGATIVE (< 200 ng/mL); Cocaine Urine VISTA NEGATIVE (< 300 ng/mL); Ecstacy Urine VISTA NEGATIVE (< 500 ng/mL); Methadone Urine VISTA NEGATIVE (< 300 ng/mL); PCP Urine VISTA NEGATIVE (< 25 ng/mL); THC Urine VISTA NEGATIVE (< 50 ng/mL); Vista UDS pH Range 6
--- NOTE | 2019-11-12 13:28 | EKG12_ITS ---
Test Reason : PREOP Blood Pressure : / mmHG Vent. Rate : 103 BPM Atrial Rate : 103 BPM P-R Int : 134 ms QRS Dur : 072 ms QT Int : 330 ms P-R-T Axes : 065 019 054 degrees QTc Int : 432 ms Sinus tachycardia Otherwise normal ECG No previous ECGs available Confirmed by SARAH MUHAMMAD, KAREN ([id number]), city editor SHALINI CRISOSTOMO ([id number]) on 11/17/2019 8:42:25 AM Referred By: DANNY Confirmed By:KAREN SMITH MD
--- NOTE | 2019-11-12 15:07 | RAD_ITS ---
CLINICAL HISTORY: ERCP COMPARISON: None. TECHNIQUE: 1 image(s) of an ERCP performed by Physician: Darinel Garcia were submitted for evaluation. FINDINGS: Single intraprocedural image of an ERCP is submitted for interpretation. Endoscope is seen in place with cannulation of the biliary tree. Opacification of the biliary system appears within normal limits. The visualized osseous structures are unremarkable. RAD/ERCP Biliary Only IMPRESSION: Single intraprocedural ERCP image. Please see procedure report for further details. Electronically Signed: Celestino Buitrago, at 21:55 EST Tel , Service support ,
--- NOTE | 2019-11-12 15:26 | OP.ERCP_ITS ---
Patient Name: Loco Willard Procedure Date: 11/12/2019 2:35 PM Date of : 1980 Age: 39 Procedure: ERCP Indications: Elevated liver enzymes Providers: Darinel Garcia MD Medicines: General Anesthesia Patient Profile: This is a 39 year old female. Refer to note in patient chart for documentation of history and physical. Complications: No immediate complications. Estimated blood loss: Minimal. Procedure: Pre-Anesthesia Assessment: - Prior to the procedure, a History and Physical was performed, and patient medications and allergies were reviewed. The patient's tolerance of previous anesthesia was also reviewed. The risks and benefits of the procedure and the sedation options and risks were discussed with the patient. All questions were answered, and informed consent was obtained. Prior Anticoagulants: The patient has taken no previous anticoagulant or antiplatelet agents. After reviewing the risks and benefits, the patient was deemed in satisfactory condition to undergo the procedure. After obtaining informed consent, the scope was passed under direct vision. Throughout the procedure, the patient's blood pressure, pulse, and oxygen saturations were monitored continuously. The duodenoscope was introduced through the mouth, and advanced to the duodenum and used to inject contrast into the bile duct. The ERCP was accomplished without difficulty. The patient tolerated the procedure well. Scope In: 3:14:22 PM Scope Out: 3:21:22 PM Total Procedure Duration Time 0 hours 7 minutes 0 seconds Findings: The major papilla was normal. A 0.035 inch x 260 cm straight Dreamwire was passed into the biliary tree. The sphincterotome was passed over the guidewire and the bile duct was then deeply cannulated. Contrast was injected. Biliary sphincterotomy was made with a monofilament sphincterotome using ERBE electrocautery. There was no post-sphincterotomy bleeding. The biliary tree was swept with a 12 mm balloon starting at the bifurcation. Debris was swept from the duct. The endoscope was withdrawn from the patient. Impression: - The major papilla appeared normal. - A biliary sphincterotomy was performed. - The biliary tree was swept and debris was found. Recommendation: - Clear liquid diet. - [facility]. Procedure Code(s): --- Professional --- 75065, Endoscopic retrograde cholangiopancreatography (ERCP); with removal of calculi/debris from biliary/pancreatic duct(s) Diagnosis Code(s): --- Professional --- R74.8, Abnormal levels of other serum enzymes CPT copyright 2017 [employer]. All rights reserved. The codes documented in this report are preliminary and upon glass vial filler review may be revised to meet current compliance requirements. Darinel Garcia MD 11/12/2019 3:26:11 PM This report has been signed electronically. Number of Addenda: 0 Note Initiated On: 11/12/2019 2:35 PM
--- NOTE | 2019-11-12 15:26 | OP.CCLET_ITS ---
11/12/2019 Kulwant Betts MD Re : ERCP procedure for Loco Willard Dear Dr. Betts This procedure was performed on October. My impressions and recommendations are as follows: Impressions : - The major papilla appeared normal. - A biliary sphincterotomy was performed. - The biliary tree was swept and debris was found. Recommendations : - Clear liquid diet. - [facility]. My findings are described in the full procedure note, which is enclosed. If I can be of further assistance, please feel free to contact me at Doctor phone number(s): , Work: . Sincerely, Darinel Garcia MD 11/12/2019 3:26:11 PM This report has been signed electronically.
[2019-11-12] MEDS: Pantoprazole Sodium 40 MG Tablet PO (20:57)
[2019-11-13] MEDS: 0.9% Normal Saline 1,000 ML 125 ML IV (00:32)
[2019-11-13 02:37] VITALS: BP 105/70; PULSE 65; RESP 16; TEMP 36.9; O2SAT 97
[2019-11-13 03:07] LABS: HEPATITIS B SURFACE AG Negative (Negative); Hepatitis A AB, Total Negative (Negative); Hepatitis A IgM Antibody Negative (Negative); Hepatitis B Core AB IgM Negative (Negative); Hepatitis B Core Ab Total Negative (Negative); Hepatitis C Ab 0.1 s/co ratio (0.0-0.9)
--- NOTE | 2019-11-13 05:55 | PCM.PN.BLA ---
Progress Note ERCP and sphincterotomy for small amount of debris noted Pt feeling well Likely this will be treatment complete If symptoms recur then consider deoxycholic acid Consider short term H2 sheree STROKE Vital Signs/Narrative: Vital Signs Temp Pulse Resp BP Pulse Ox 11/13/19 02:37 98.4 F 65 16 105/70 97
[2019-11-13 07:57] LABS: Absolute Lymphocyte Count 2.47 X10^3/uL (0.83-4.51); Absolute Neutrophil Count 9.7 X10^3/uL (2.0-7.7); Basophil# 0.03 X10^3/uL; Basophil% 0.2 % (0-1); Eosinophil# 0.03 X10^3/uL; Eosinophils% 0.2 % (0-5); Hematocrit 35.7 % (37-47); Hemoglobin 11.6 g/dL (12.0-15.0); Lymphocyte # 2.47 X10^3/ul (4.0); Lymphocyte % 18.8 % (19-41); Mean Corp Hgb Conc 32.5 g/dL (32-36); Mean Corpuscular Hgb 28.3 pg (27.0-32.0); Mean Corpuscular Volume 87.1 fL (81-99); Mean Platelet Vol. 9.5 fl (6.2-12.0); Monocyte# 0.83 X10^3/uL; Monocyte% 6.3 % (0-10); NRBC Flagged by Analyzer 0 % (0-5); Platelet Count 221 K/mm3 (150-450); RBC Distribution Width CV 13.1 % (11.6-14.6); RBC Distribution Width SD 41.2 fl (35.1-43.9); White Blood Count 13.1 K/mm3 (4.4-11.0)
[2019-11-13 08:06] LABS: ALB/GLOB Ratio 1.1 RATIO (0.9-2.4); AST(SGOT) 40 U/L (15-37); Alanine Aminotransfer ALT/SGPT 109 U/L (13-56); Alkaline Phosphatase 51 U/L (45-117); Anion Gap 4 (5-15); BUN 6 mg/dL (7-18); BUN/Creat Ratio 10.5 RATIO (10-20); Calcium,Total 8.1 mg/dL (8.5-10.1); Chloride 113 mmol/L (98-107); Creatinine, Serum 0.57 mg/dL (0.55-1.02); EST Glomerular Filtration Rate 124 mL/min (>60); Est Glom Filt Rate - Afr Amer 150 mL/min (>60); Estimated Creatinine Clearance 107.44 ml/min; Globulin 2.8 g/dL (2.2-4.2); Glucose 87 mg/dL (74-106); Potassium 3.9 mmol/L (3.5-5.1); Protein, Total 5.8 g/dL (6.4-8.2); Sodium Level 143 mmol/L (136-145)
--- NOTE | 2019-11-13 08:08 | DCINST_ITS ---
- Discharge Diagnoses Current Active Problems: Current Active and Chronic Problems 1. Abdominal pain, nausea, emesis secondary to acute gastritis, Possible Hepatitis w/ elevated LFT as noted, RULED out retained CBD stone, RULED out ileus and early SBO 2. Leukocytosis, unclear etiology, Likely stress response and dehydration 3. Elevated LFTs, unclear etiology, improving 4. Hypokalemia You will use the following diet at home:: Regular - Please slowly transition back to regular diet with alterations as recommended per instruction section. Your food should be the consistency of: Regular Your liquids should be the consistency of: Regular/Thin Discharge Activity: - - Avoid aggressive activity until clinically improved, tolerating diet. May resume sexual activity in: 10-14 days Weight Bearing Status: Weight bearing as tolerated Call your doctor if you observe: Fever of 101 or Higher, Inability to urinate, Inability to have a bowel movement, Shortness of breath, Dizziness, Fainting spells, Chest pain, Uncontrolled pain Instructions: Peptic Ulcer, Understanding H. pylori and Ulcers, What Is GERD?, Lifestyle Changes for Controlling GERD, Medications for GERD, Tips for Quitting Smoking (Cardiovascular), Why Do You Smoke?, Planning to Quit Smoking, Getting Support for Quitting Smoking, Coping with Smoking Withdrawal Additional Instructions: During the admission you had elevations noted of your liver enzymes, during the admission there was initial concern for a retained common bile duct stone however the ERCP performed was only notable for gastritis with recommendation for continued twice daily protonox with diet/lifestyle alteration. During the admission, a hepatitis panel was obtained with results pending upon discharge and likely to return in the next 2 to 3 days. Please review these results with your primary care physician. Pending Tests on Discharge: Hepatitis Panel Allergies/Adverse Reactions: Allergies Sulfa (Sulfonamide Antibiotics) Allergy (Verified 11/11/19 15:42) Rash sulfamethoxazole [From Bactrim] Allergy (Verified 11/11/19 15:42) Rash trimethoprim [From Bactrim] Allergy (Verified 11/11/19 15:42) Rash Medications to take at Discharge Nicotine [Nicoderm Cq] 21 mg TRANSDERM. DAILY #14 patch 11/12/19 Pantoprazole Sodium [Protonix] 40 mg PO BID #60 tab 11/12/19 The following prescriptions were given: Nicotine [Nicoderm Cq] 21 mg TRANSDERM. DAILY #14 patch Transmission Status: Received by [facility]/pharmacy #[id number] Pantoprazole Sodium [Protonix] 40 mg PO BID #60 tab Transmission Status: Received by [facility]/pharmacy #[id number] Primary Care Physician: Kulwant Betts MD [Primary Care Provider] - Please follow up with your Primary Care Physician in: Follow-up within 3-5 days to review admission. Test Results: Test results from this visit will be discussed in further detail at your follow- up appointment, if applicable. Please Follow Up With: Taz Pinedo MD When: Follow-up as needed if onset reflux symptoms. Proposed Discharge Date: 11/13/19
--- NOTE | 2019-11-13 08:14 | DS.PCM_ITS ---
Discharge Date and Diagnosis - Problem List Patient Problems: Active and Suspected Problems Small bowel obstruction (Suspected) Small bowel ileus (Acute) Date of Admission: 11/11/19 Date of Discharge: 11/13/19 - Primary Discharge Diagnosis Active and Suspected Problems 1. Abdominal pain, nausea, emesis secondary to acute gastritis, Possible Hepatitis w/ elevated LFT as noted, RULED out retained CBD stone, RULED out ileus and early SBO 2. Leukocytosis, unclear etiology, Likely stress response and dehydration 3. Elevated LFTs, unclear etiology, improving 4. Hypokalemia - Secondary Discharge Diagnosis Tobacco use Hospital Course and Treatment Dr. Garcia and Dr. Pinedo General Surgery Operations: ERCP Procedures: EKG Summary of Care Provided: The patient is a 39 y/o F w/ PMHx: Tobacco use, Prior history of cholecystectomy who presented to the [facility] ED on 11/11/19 with history of onset abdominal pain starting AM on day of ED presentation, noted epigastric and midabdominal in location, comes in waves, burning and cramping pain, 7 out of 10 in severity, not radiating, associated with nausea and vomiting and without aggravating or relieving factors. In the ED work-up included CT A/P w/ distended fluid-filled stomach and moderately distended loops of fluid-filled small bowel possibly ileus versus early obstruction, CBC w/ WBC 20.9 with L shift, LA normal. Admitted to CT, maintained on IVFs, initiated NGT to suction in the ED w/ re- evaluation per Surgery in Am with d/c, continued strict I&Os, IV pain/anti- emetics PRN, serial KUB to montior bowel function w/ 11/12/19 AM nonspecific bowel gas pattern, Famotidine IV w/ eventual PPI BID transition, initially NPO status on bowel rest. Patient upon general surgery evaluation 11/12/19 AM with discontinuation of NG tube also ordered small bowel follow-through with no obvious concerning findings. Reviewed patient labs including elevated LFTs with general surgery and concerned that maybe presentation was secondary to retained common bile duct stone. Patient underwent 11/12/19 afternoon ERCP and there is no obvious retained stone but did notice gastritis with blood in the stomach with recommendation for continued high-dose PPI and allowance of restart diet. During admission as noted, elevated LFTs noted w/ admission CMP with AST/ALT 31/50 with total bilirubin 0.4, direct bilirubin 0.11, repeat 11/12/2019 with total bilirubin 1.10, AST/ALT 212/195 with alk phos 58-->11/13/19 T bili 0.40, AST/ALT 40/109, Alk phos 51, improving, unclear if associated with acute presentation, surgery evaluation as noted with concern for initially retained common bile duct stone now status post ERCP with no obvious retained stone but evidence of acute gastritis upon evaluation. Hepatitis panel obtained during admission as recent hepatitis A outbreaks in the community and pending at discharge w/ recommended PCP follow-up within 3-5 days and review of results at that time. DAY OF DISCHARGE PROGRESS NOTE: Subjective: Patient without acute event overnight per self and nursing report. Patient feeling well, eager for transition for diet this a.m. denies any recurrent nausea, emesis, abdominal pain. She does note that last time she had bowel movement was following small bowel follow-through agent and at that time it was expectedly loose. Patient denies fever, chills, chest pain or dyspnea. Patient agreeable to discharge to home. Patient will be discharged with follow- up with primary care physician within 3-5 days in addition to follow-up with general surgery if onset reflux symptoms given findings on ERCP with recommendation for continued high-dose PPI at this time. Objective: T 98.4, heart 65, BP 105/70, respiratory rate 16, 97% on room air. Physical Examination: General: awake, alert, oriented x 3 and cooperative, seated upright in the medical surgical bed, no acute complaints, feeling well, eager for diet trans ition. Skin: normal color, turgor, no icterus, cyanosis. HEENT: AT/NC, EOMI, PERRLA, improved MMM, mild lid puffiness. Lungs: CTA bilaterally, moderate effort, mild decrease BL bases, no rales, ronchi or wheezing. Heart: Regular rate and rhythm; no gallop, rub audible. Abdomen: soft, NTTP, ND, mildly hypoactive BS. Extremities: no cyanosis, clubbing, or edema. Neurological: patient awake, alert, oriented x 3; cognitive function intact; pupils equally reactive to light and accomodation; cranial nerves II-XII grossly normal, moving all 4 extremities, no focal deficits, strength preserved, improv ed. Psychiatric: affect appears normal, no acute evidence of depressive or anxiety feelings. Assessment and Plan: Please see hospital summary above. Patient Problems: Active and Suspected Problems Small bowel obstruction (Suspected) Small bowel ileus (Acute) - Physical Exam Vitals/I&O's: Vital Signs Temp Pulse Resp BP Pulse Ox 98.4 F 65 16 105/70 97 11/13/19 02:37 11/13/19 02:37 11/13/19 02:37 11/13/19 02:37 11/13/19 02:37 Oxygen Delivery Method Room Air Weight: 145 lb 9 oz Body Mass Index (BMI) 25.7 Intake and Output for Last 24 Hours 11/11/19 11/12/19 11/13/19 23:59 23:59 23:59 Intake Total 1060 / 1060 2045.00 / 2045.00 1240 / 1240 Output Total 650 / 650 100 / 100 Balance 410 / 410 1945.00 / 1945.00 1240 / 1240 Laboratory Results 11/11/19 15:55: Hepatitis A IgM Ab Pending, Hepatitis A Ab Total Pending, Hep Bs Antigen Pending, Hep B Core Total Ab Pending, Hep B Core IgM Ab Pending 11/11/19 17:05: Urine Opiates Screen NEGATIVE, Urine Methadone Screen NEGATIVE, Ur Barbiturates Screen NEGATIVE, Ur Phencyclidine Scrn NEGATIVE, Ur Amphetamines Screen NEGATIVE, U Methamphetamin-MDMA NEGATIVE, U Benzodiazepines Scrn NEGATIVE, Urine Cocaine Screen NEGATIVE, U Cannabinoids Screen NEGATIVE, Ur Drug Screen Comment 11/13/19 07:25: WBC 13.1 H, RBC 4.10 L, Hgb 11.6 L, Hct 35.7 L, MCV 87.1, MCH 28.3, MCHC 32.5, RDW Std Deviation 41.2, RDW Coeff of Gregor 13.1, Plt Count 221, MPV 9.5, Immature Gran % (Auto) 0.500, Neut % (Auto) 74.0 H, Lymph % (Auto) 18.8 L, [place] % (Auto) 6.3, Eos % (Auto) 0.2, Baso % (Auto) 0.2, Absolute Neuts (auto) 9.7 H, Absolute Lymphs (auto) 2.47, Nucleated RBC % 0 11/13/19 07:25: Sodium 143, Potassium 3.9, Chloride 113 H, Carbon Dioxide 26.0, Anion Gap 4 L, BUN 6 L, Creatinine 0.57, Estim Creat Clear Calc 107.44, Est GFR (MDRD) Af Amer 150, Est GFR (MDRD) Non-Af 124, BUN/Creatinine Ratio 10.5, Glucose 87, Calcium 8.1 L, Total Bilirubin 0.40, AST 40 H, ALT 109 H, Alkaline Phosphatase 51, Total Protein 5.8 L, Albumin 3.0 L, Globulin 2.8, Albumin/Globulin Ratio 1.1 Current Medications Acetaminophen (Tylenol) 650 mg PO Q6H PRN PRN PRN Reason: Pain Score 1-3/Temp > 100.7 F Al Hydroxide/Mg Hydroxide (Mylanta Ii) 30 ml PO Q4H PRN PRN PRN Reason: DYSPEPSIA Calcium Carbonate (Tums) 500 mg PO Q4H PRN PRN PRN Reason: DYSPEPSIA Sodium Chloride () 250 mls @ 15 mls/hr IV .[id number] PRN PRN Reason: Saline Flush Last Infusion: 11/12/19 10:57 Dose: Infused Documented by: Sodium Chloride () 1,000 mls @ 125 mls/hr IV .Q8H [facility] Last Admin: 11/13/19 00:32 Dose: 125 mls/hr Documented by: Morphine Sulfate () 1 mg IV Q4H PRN PRN PRN Reason: Pain Score 4-10/10 Last Admin: 11/12/19 04:07 Dose: 1 mg Documented by: Nicotine (Nicoderm Cq (Pbkc)) 21 mg TRANSDERM. DAILY [facility] Last Admin: 11/12/19 09:04 Dose: 21 mg Documented by: Ondansetron HCl (Zofran) 4 mg IV Q8H PRN PRN PRN Reason: NAUSEA/VOMITING Oxycodone HCl (Oxyir) 5 mg PO Q4H PRN PRN PRN Reason: Pain Score 6-10/10 Pantoprazole Sodium (Protonix) 40 mg PO BID [facility] Last Admin: 11/12/19 20:57 Dose: 40 mg Documented by: Promethazine HCl (Phenergan) 6.25 mg IV Q6H PRN PRN PRN Reason: NAUSEA/VOMITING Sodium Chloride () 10 - 40 ml IV UD PRN PRN Reason: SALINE FLUSH Last Admin: 11/12/19 09:04 Dose: 10 ml Documented by: Discharge Activity: - - Avoid aggressive activity until clinically improved, tolerating diet. May resume sexual activity in: 10-14 days Weight Bearing Status: Weight bearing as tolerated Call your doctor if you observe: Fever of 101 or Higher, Inability to urinate, Inability to have a bowel movement, Shortness of breath, Dizziness, Fainting spells, Chest pain, Uncontrolled pain Home Medications: Medications to take at Discharge Nicotine [Nicoderm Cq] 21 mg TRANSDERM. DAILY #14 patch 11/12/19 Pantoprazole Sodium [Protonix] 40 mg PO BID #60 tab 11/12/19 Following Prescrptions Were Given to Patient: Nicotine [Nicoderm Cq] 21 mg TRANSDERM. DAILY #14 patch Transmission Status: Re[facility] by [facility] #[id number] Pantoprazole Sodium [Protonix] 40 mg PO BID #60 tab Transmission Status: Received by [facility] #[id number] Primary Care Physician: Kulwant Betts MD [Primary Care Provider] - Please follow up with your Primary Care Physician in: Follow-up within 3-5 days to review admission. Please Follow Up With: Taz Pinedo MD When: Follow-up as needed if onset reflux symptoms. Patient Instructions: Peptic Ulcer, Tips for Quitting Smoking (Cardiovascular), What Is GERD?, Understanding H. pylori and Ulcers, Lifestyle Changes for Controlling GERD, Medications for GERD, Why Do You Smoke?, Planning to Quit Smoking, Getting Support for Quitting Smoking, Coping with Smoking Withdrawal Disposition: Home Minutes spent on discharge:: 35 Patient Condition:: Fair Medical Necessity - Tobacco Use Smoking Status: Heavy Smoker (>10/day) Tobacco Use: Cigarettes Meaningful Use Info Meaningful Use Diagnoses (Choose all that apply): None applicable Code Visit Inpatient E&M: 26820 Disch Hosp
[2019-11-13 08:37] VITALS: BP 129/89; PULSE 90; RESP 18; TEMP 36.9; O2SAT 99
[2019-11-13] MEDS: Pantoprazole Sodium 40 MG Tablet PO (09:08)
[2019-11-13 13:14] LABS: Hep B Surface Antibodies Non Reactive (.)
== END 2019-11-13 09:39 | disposition home or self-care (01) | DRG 241 ==
LOC: ED 16:21 → MS3 20:53
PROVIDERS: Surgery; Admitting Provider Hospitalist; Emergency Provider Emergency Medicine; PCP Family Medicine; Visit Provider Family Medicine
PROC: 0F798ZZ Dilation of Common Bile Duct, Via Natural or Artificial Opening Endoscopic (ICD-10-PCS; CPT 43260; principal; 2019-11-12 15:00)
DX: K29.00 Acute gastritis without bleeding (principal); F17.210 Nicotine dependence, cigarettes, uncomplicated; K75.9 Inflammatory liver disease, unspecified; E86.0 Dehydration; D72.829 Elevated white blood cell count, unspecified; E87.6 Hypokalemia; R79.89 Other specified abnormal findings of blood chemistry; Z90.49 Acquired absence of other specified parts of digestive tract
CPT/HCPCS: 36415; 74018; 74177; 74246; 74248; 74328; 76000; 80048; 80053; 80076; 80307; 81001; 83605; 83690; 84484; 84703; 85025; 86704; 86705; 86706; 86708; 86709; 86803; 87340; 93005; 99251; 99285; 99406; J7030; J7040; J7050; J7120; Q9967; A4216; G0463; J1610; J2405; J3490

== ENCOUNTER 2021-11-01 13:52 | Outpatient (CLI) | payer MEDICAID, SELFPAY | END 2021-11-01 23:59 | disposition short-term general hospital (02) | LOC: LABSPEC 13:53 | PROVIDERS: PCP Family Medicine; Referring Provider Physician Assistant; Visit Provider Physician Assistant | DX: Z11.52 Encounter for screening for COVID-19 (principal) | CPT/HCPCS: 87635; U0003; U0005 ==

== ENCOUNTER → 2023-05-30 | Outpatient (CLI) | payer MEDICAID, SELFPAY | END | disposition home or self-care (01) | LOC: LABSPEC 10:22 | PROVIDERS: PCP Family Medicine; Referring Provider Physician Assistant Surgical; Visit Provider Physician Assistant Surgical | DX: R31.9 Hematuria, unspecified (principal) | CPT/HCPCS: 87086; 87088; 87186 ==

== ENCOUNTER → 2023-08-05 | Outpatient (CLI) | payer MEDICAID, SELFPAY ==
[2023-08-05 12:24] LABS: Bacteria 0 SEEN /hpf (None Seen); Mucous, Urine 0 SEEN /hpf (<or=2+); Red Blood Cells-Urine 0 SEEN /hpf (0-5)
[2023-08-05 12:42] LABS: Color, Urine Yellow (Yellow); Glucose, Dipstick Normal (Normal); Ketone-Dipstick Negative (Negative); Leukocyte Esterase-Dipstick 500 /ul (Negative); Nitrite-Dipstick Negative (Negative); Occult Blood-Urine 50 /ul (Negative); Protein-Dipstick 15 mg/dl (Negative); Urine Bilirubin Dipstick Negative (Negative); Urine Clarity Sl. Cloudy (Clear); Urine Urobilinogen Normal (Normal); Urine pH 6.5 (5.0 - 8.0)
[2023-08-05 12:48] LABS: White Blood Cells >100 SEEN /hpf (0-5)
[2023-08-05 12:49] LABS: Squamous Epithelial Cells - UA 0-5 SEEN /hpf (5-10)
== END | disposition home or self-care (01) ==
PROVIDERS: PCP Family Medicine; Referring Provider Physician Assistant; Visit Provider Physician Assistant
DX: R30.0 Dysuria (principal); N39.0 Urinary tract infection, site not specified
CPT/HCPCS: 81001; 87077; 87086; 87088; 87186

== ENCOUNTER → 2023-08-19 | Outpatient (CLI) | payer MEDICAID, SELFPAY ==
[2023-08-19 17:36] LABS: Bacteria 0 SEEN /hpf (None Seen); Mucous, Urine 0 SEEN /hpf (<or=2+); Red Blood Cells-Urine 0 SEEN /hpf (0-5); Squamous Epithelial Cells - UA 0 SEEN /hpf (5-10); White Blood Cells 0 SEEN /hpf (0-5)
[2023-08-19 17:43] LABS: Color, Urine Yellow (Yellow); Glucose, Dipstick Normal (Normal); Ketone-Dipstick Negative (Negative); Leukocyte Esterase-Dipstick 25 /ul (Negative); Nitrite-Dipstick Negative (Negative); Occult Blood-Urine Negative /ul (Negative); Protein-Dipstick Negative (Negative); Urine Bilirubin Dipstick Negative (Negative); Urine Clarity Clear (Clear); Urine Urobilinogen Normal (Normal)
== END | disposition home or self-care (01) ==
PROVIDERS: PCP Family Medicine; Referring Provider Physician Assistant; Visit Provider Physician Assistant
DX: R10.9 Unspecified abdominal pain (principal)
CPT/HCPCS: 81001; 87086